=== PATIENT | female | born 1995 | race African-American/Black ===

== ENCOUNTER 2023-11-03 17:08 | Emergency (ER) | payer MEDICAID, SELFPAY ==
[2023-11-03 17:06] VITALS: BP 111/91; PULSE 90; RESP 16; TEMP 36.9; O2SAT 100
[2023-11-03 17:33] LABS: Basophils Percent Auto 0.2 % (0.2-1.2); Eosinophils Absolute Auto 0.1 K/mm3 (0-0.3); Eosinophils Percent Auto 1.5 % (0-4.4); Hematocrit 38.4 % (37.0-47.0); Hemoglobin 12.7 g/dL (12.0-15.0); Immature Granulocyte Absolute 0.03 K/mm3 (0.00-0.031); Immature Granulocyte Percent A 0.3 % (0-0.5); Lymphocytes Absolute Auto 1.89 K/mm3 (0.9-3.2); Lymphocytes Percent Auto 20.7 % (18.3-44.2); Mean Corpuscular HGB Conc 33.1 g/dl (32-36); Mean Corpuscular Hemoglobin 29.6 pg (26-34); Mean Corpuscular Volume 89.5 fl (80-100); Mean Platelet Volume 10.7 fl (7.4-10.4); Monocytes Absolute Auto 0.6 K/mm3 (0.1-0.6); Monocytes Percent Auto 6.3 % (2.6-8.5); Neutrophils Absolute Auto 6.5 K/mm3 (1.3-6.7); Platelet Count Result 217 k/mm3 (150-375); Red Blood Count 4.29 M/mm3 (4.2-5.4); Red Cell Distribution Width 12.3 % (11.5-14.5); White Blood Count 9.1 K/mm3 (4.5-10.0)
[2023-11-03 17:43] LABS: Alanine Aminotransferase 16 U/L (6-35); Albumin Level 4.3 g/dL (3.5-5.1); Alkaline Phosphatase 71 U/L (38-126); Anion Gap 12 mmol/L (4-12); Aspartate Amino Transferase 24 U/L (14-36); Bilirubin,Total 0.8 mg/dL (0.2-1.3); Blood Urea Nitrogen 6 mg/dL (7-17); Calcium 8.9 mg/dL (8.4-10.2); Carbon Dioxide 21 mmol/L (22-30); Chloride 103 mmol/L (98-107); Estimated CRCL calculation 90 ml/min; Estimated Glomerular Filt Rate > 60; Glucose 104 mg/dL (65-110); Lipase 31 U/L (23-300); Potassium 3.5 mmol/L (3.4-5.0); Sodium 136 mmol/L (137-145)
[2023-11-03 17:52] VITALS: BP 131/80; PULSE 92; RESP 14; O2SAT 98
--- NOTE | 2023-11-03 18:30 | ED.ABDPAIN ---
HPI - Abdominal Pain General Chief Complaint: Abdominal Pain Stated Complaint: Abd pain Time Seen by Provider: 11/03/23 17:45 History of Present Illness HPI narrative: Patient is a 28-year-old female who presents to the emergency department this evening complaining of abdominal cramping that started while she was finishing her workout at the gym. Patient states that she was doing this to her master's for 20 minutes and some abdominal workouts. Patient started to feel nauseous and initially thought it was due to the amount of water she was drinking while she was working out but then decided to go outside of the gym to get some fresh air and started to have some lower abdominal cramping. Patient states that by the time EMS arrived in she was administered some IV fluids she started to feel better and by the time she arrived to our emergency department the abdominal cramping have completely stopped. Patient believes that she over did it at the gym today and states that she has not work that in the past 3 weeks as she was taking a break and finally decided to get back to it today. She is currently denying any urinary symptoms and denies any abdominal pain at this time, is resting comfortably without any concerns or complaints. Related Data Allergies Allergy/AdvReac Type Severity Reaction Status Date / Time No Known Allergies Allergy Verified 11/03/23 17:25 Review of Systems Review of Systems: All systems are reviewed and are negative unless stated otherwise in the HPI. Exam Narrative: General: Alert, awake, afebrile, in no acute distress. HEENT: PERRL, no rhinorrhea, no post nasal drip, oropharynx clear. Cardiovascular: Regular rate and rhythm, no murmurs, rubs or gallops, no peripheral edema. Respiratory: Clear to auscultation bilaterally, no tachypnea, no wheezing, no rhonchi, no rubs, no respiratory distress. Abdomen: Soft, nontender, nondistended, no rebound, no guarding, no peritoneal signs. Musculoskeletal: No joint swelling or deformity, normal muscle tone. Skin: No rashes or petechia, no signs of infection. Neurological: Alert and oriented to person, place, and time. Follows all commands. No focal deficits, speech is clear and fluent. Course Vital Signs Vital signs: Vital Signs Temperature 98.5 F 11/03/23 17:06 Pulse Rate 90 11/03/23 17:06 Respiratory Rate 16 11/03/23 17:06 Blood Pressure 111/91 H 11/03/23 17:06 Pulse Oximetry 100 11/03/23 17:06 Oxygen Delivery Room Air 11/03/23 17:06 Temperature 98.5 F 11/03/23 17:06 Pulse Rate 92 11/03/23 17:52 Respiratory Rate 14 11/03/23 17:52 Blood Pressure 131/80 11/03/23 17:52 Pulse Oximetry 98 11/03/23 17:52 Oxygen Delivery Room Air 11/03/23 17:06 MDM - Abdominal Pain MDM Narrative Medical decision making narrative: The patient was evaluated by myself in the emergency department. History is obtained from patient who is an independent historian and physical exam was performed. External medical records were reviewed at this time. IV was established and pertinent tests were ordered. Laboratory results obtained revealing no acute process. Shared medical decision-making with patient regarding obtaining imaging was discussed at this time and patient is agreeable that no CT is indicated some as patient is completely asymptomatic with a soft nontender abdomen. Differential diagnosis considerations include musculoskeletal spasms, dehydration and electrolyte derangements. Comorbidities impacting this visit include none. I have evaluated and discussed social determinants of health with the patient that could potentially impact subsequent diagnosis and treatment plans. On repeat assessment of the patient, reevaluation revealed that the patient is doing well and is in no acute distress. Patient symptoms have improved since she arrived to our emergency department. Repeat vital signs were all reviewed and noted to be stable.
[2023-11-03 18:46] VITALS: BP 126/78; PULSE 87; RESP 14; O2SAT 99
== END 2023-11-03 18:47 | disposition home or self-care (01) ==
PROVIDERS: Emergency Medicine; Emergency Provider Emergency Medicine; PCP Family Medicine
DX: R10.9 Unspecified abdominal pain (principal)
CPT/HCPCS: 36415; 80053; 83690; 85025; 99283

== ENCOUNTER 2024-08-03 19:10 | Emergency (ER) | payer OTHER, SELFPAY ==
--- OUTSIDE RECORDS SUMMARY | 2024-08-03 19:12 | XMS_ITS | Data Portability ---
Author Organization [facility] Address [address] [facility] [place] [address] Assessment Encounter Date Assessment Date Assessment LastModified by Organization Details LastModified Time 03/28/2019 03/28/2019 Duplicate chart for this day. [email or web address] Not available 03/28/2019 16:41:03 Plan of Treatment Reminders Order Date Submit Date Provider Last Modified By Organization Details Last Modified Time Details Appointments None recorded. Lab bacterial vaginosis panel, vaginal 2019 020 TALISHA [facility] (Centralized Electronic Ordering - All Locations), Patient Can Go To The Location Of Their Choice, [id number] 0 08:40:01 culture, vaginal/r ectal, streptoco ccus group B 2019 020 TALISHA [facility] (Centralized Electronic Ordering - All Locations), Patient Can Go To The Location Of Their Choice, [id number] 0 08:40:01 HIV 1+2 AB + HIV 1 p24 Ag, qualitati ve immunoass ay, serum 2018 019 TALISHA [facility], [address], [place], [address], 9 09:10:08 RPR (rapid plasma reagin), serum 2018 019 TALISHA [facility], [address], [place], [address], 9 09:10:08 hepatitis panel (A+B+C), acute, serum 2018 019 [facility], [address], [place], [address], 9 09:10:07 bacterial vaginosis + vaginitis panel, vaginal 2018 019 [facility], [address] [address], [place], [address], 9 06:06:40 unlisted lab - igp, rfx aptima HPV ascu 2018 019 [facility], [address] [facility] [address], [place], [address], 9 15:08:47 CT + NG + TV, DNA, urine/swa b 2017 018 [facility], 2022 Angelia Jeffers, [address], [address], 8 07:13:47 test, urine 2017 018 tha In-Office Order, Internal Use Only DO Not Attach Compendium DO Not Attach Compendium, Do Not Delete/merge, [id number] 8 16:06:50 urinalysi s, dipstick 2017 Claudio almazan In-Office Order, Internal Use Only DO Not Attach Compendium DO Not Attach Compendium, Do Not Delete/merge, [id number] 8 16:06:50 Referral None recorded. Procedures None recorded. Surgeries None recorded. Imaging None recorded. Medication Orders Xulane 150 mcg-35 mcg/24 hr transderm al patch 2017 018 [id number], [address] [place], [place], [id number], 9 11:32:14 multivita min tablet 2017 018 [facility] #[id number], [address] [place], [place], [id number], 9 11:32:06 calcium 600 mg (as carbonate )-vitamin D3 20 mcg (800 unit) tablet 2017 018 [id number] [place], [place], [id number], 9 11:32:01 Patient TargetsNo targets recorded. Patient InstructionsNo instructions recorded. Reason for Referral None Reported. Results Created Date Observation Date Name Description Value Unit Range Abnormal Flag Note LastModifiedBy Organization Detail LastModifiedTime 01/25/20 18 01/24/2018 urina lysis , dipst ick Leukocytes Trace Not Available In-Offi ce Order Internal Use Only DO Not Attach Compendium DO Not Attach Compendium, Do Not Delete/merge, [id number] 01/24/2018 15:18:47 01/25/20 18 01/24/2018 urina lysis , dipst ick Nitrite negati ve Not Available In-Office Order Internal Use Only DO Not Attach Compendium DO Not Attach Compendium, Do Not Delete/merge, [id number] 01/24/2018 15:18:47 01/25/20 18 01/24/2018 urina lysis , dipst ick Urobilinogen .2 Not Available In-Of fice Order Internal Use Only DO Not Attach Compendium DO Not Attach Compendium, Do Not Delete/merge, [id number] 01/24/2018 15:18:47 01/25/2001/24/2018 urina lysis , dipst ick Protein Negati ve Not Available In-Office Order Internal Use Only DO Not Attach Compendium DO Not Attach Compendium, Do Not Delete/merge, [id number] 01/24/2018 15:18:47 01/25/20 18 01/24/2018 urina lysis , dipst ick pH 6.5 Not Available In-Office Order Internal Use Only DO Not Attach Compendium DO Not Attach Compendium, Do Not Delete/merge, [id number] 01/24/2018 15:18:47 01/25/20 18 01/24/2018 urina lysis , dipst ick Blood Negati ve Not Available In-Office Order Internal Use Only DO Not Attach Compendium DO Not Attach Compendium, Do Not Delete/merge, [id number] 01/24/2018 15:18:47 01/25/20 18 01/24/2018 urina lysis , dipst ick Specific [place] 1.015 Not Available In-Off ice Order Internal Use Only DO Not Attach Compendium DO Not Attach Compendium, Do Not Delete/merge, [id number] 01/24/2018 15:18:47 01/25/20 18 01/24/2018 urina lysis , dipst ick Ketone Negati ve Not Available In-Office Order Internal Use Only DO Not Attach Compendium DO Not Attach Compendium, Do Not Delete/merge, [id number] 01/24/2018 15:18:47 01/25/20 18 01/24/2018 urina lysis , dipst ick Bilirubin Negati ve Not Available In-Office Order Internal Use Only DO Not Attach Compendium DO Not Attach Compendium, Do Not Delete/merge, [id number] 01/24/2018 15:18:47 01/25/20 18 01/24/2018 urina lysis , dipst ick Glucose Negati ve Not Available In-Office Order Internal Use Only DO Not Attach Compendium DO Not Attach Compendium, Do Not Delete/merge, [id number] 01/24/2018 15:18:47 01/25/20 18 01/24/2018 pregn sarah test, urine HCG negati ve Not Available In-Office Order Internal Use Only DO Not Attach Compendium DO Not Attach Compendium, Do Not Delete/merge, [id number] 01/24/2018 15:14:17 01/25/20 18 01/26/2018 CT + NG + TV, DNA, urine /swab chlamydia by ADELITA Negati ve negati ve Not Available [facility] ([facility]) [address], [place], [address], 01/26/2018 07:13:47 01/25/20 18 01/26/2018 CT + NG + TV, DNA, urine /swab gonococcus by ADELITA Negati ve negati ve Not Available [facility] ([facility]) [address] [facility], [place], [address], 01/26/2018 07:13:47 01/25/20 18 01/26/2018 CT + NG + TV, DNA, urine /swab trich vag by ADELITA Negati ve negati ve Not Available [facility] ([facility]) [address] [facility] [facility], [place], [address], 01/26/2018 07:13:47 03/28/20 19 03/29/2019 hepat itis panel (A+B+ C), acute , serum hep A Ab, IgM Negati ve negati ve Not Available [facility] ([facility]) [address] [facility], [place], [address], 03/29/2019 09:10:07 03/28/20 19 03/29/2019 hepat itis panel (A+B+ C), acute , serum HBsAg screen Negati ve negati ve Not Available [facility] ([facility]) [address] [facility], [place], [address], 03/29/2019 09:10:07 03/28/2003/29/2019 hepat itis panel (A+B+ C), acute , serum hep B core Ab, IgM Negati ve negati ve Not Available [facility] ([facility]) [address] [facility], [place], [address], 03/29/2019 09:10:07 03/28/2003/29/2019 hepat itis panel (A+B+ C), acute , serum hep C virus Ab 0.2 s/co_ ratio 0.0-0. 9 Negat cora: < 0.8 Indet ermin ate: 0.8 - 0.9 Posit cora: > 0.9 The CDC recom mends that a posit cora HCV antib leonel resul t be follo wed up with a HCV Nucle ic Acid Ampli ficat ion test (5507 13). Not Available [facility] ([facility]) [address] [facility], [place], [address], 03/29/2019 09:10:07 03/28/20 19 03/29/2019 RPR (rapi d plasm a reagi n), serum RPR Non Reacti ve non reacti ve Not Available [facility] ([facility]) [address] [place], [address], 03/29/2019 09:10:08 03/28/20 19 03/29/2019 HIV 1+2 AB + HIV 1 p24 Ag, quali tativ e immun oassa y, serum HIV screen 4TH generation wrfx Non Reacti ve non reacti ve Not Available [facility] ([facility]) [address] [place], [address], 03/29/2019 09:10:08 03/28/20 19 03/31/2019 bacte rial vagin osis + vagin itis panel , vagin al atopobium vaginae Modera te - 1 score Not Available [facility] ([facility]) [address] [place], [address], 04/01/2019 06:06:40 03/28/20 19 03/31/2019 bacte rial vagin osis + vagin itis panel , vagin al bvab 2 High - 2 score abnormal Not Available [facility] ([facility]) [address] [place], [address], 04/01/2019 06:06:40 03/28/20 19 03/31/2019 bacte rial vagin osis + vagin itis panel , vagin al megasphaera 1 High - 2 score abnormal Calcu late total score by luzma g the 3 indiv idual bacte rial vagin osis (BV) marke r score s toget her. Total score is inter prete d as follo ws: Total score 0-1: Indic ates the absen ce of BV. Total score 2: Indet ermin ate for BV. Addit ional clini raven data shoul d be evalu ated to estab jocy a diagn osis. Total score 3-6: Indic ates the prese nce of BV. This test was devel oped and its perfo rmanc e laura cteri stics deter mined by [employer]. It has not been clear ed or appro pamela by the Food and Drug Admin istra tion. The FDA has deter mined that such clear ance or appro regan is not neces emmett. Not Available [facility] ([facility]) [address] [place], [address], 04/01/2019 06:06:40 03/28/20 19 03/31/2019 bacte rial vagin osis + vagin itis panel , vagin al evelio albicans, ADELITA Negati ve negati ve Not Available [facility] ([facility]) [address] [place], [address], 04/01/2019 06:06:40 03/28/2003/31/2019 bacte rial vagin osis + vagin itis panel , vagin al evelio glabrata, ADELITA Negati ve negati ve This test was devel oped and its perfo rmanc e laura cteri stics deter mined by [employer]. It has not been clear ed or appro pamela by the Food and Drug Admin istra tion. The FDA has deter mined that such clear ance or appro regan is not neces emmett. Not Available [facility] ([facility]) [address] [facility] [facility], [place], [address], 04/01/2019 06:06:40 03/28/2003/31/2019 bacte rial vagin osis + vagin itis panel , vagin al trich vag by ADELITA Negati ve negati ve Not Available [facility] ([facility]) [address] [place], [address], 04/01/2019 06:06:40 03/28/20 19 03/31/2019 bacte rial vagin osis + vagin itis panel , vagin al chlamydia trachomatis, ADELITA Negati ve negati ve Not Available [facility] ([facility]) [address] [place], [address], 04/01/2019 06:06:40 03/28/20 19 03/31/2019 bacte rial vagin osis + vagin itis panel , vagin al neisseria gonorrhoeae, ADELITA Negati ve negati ve Not Available [facility] ([facility]) [address] [place], [address], 04/01/2019 06:06:40 03/28/20 19 04/02/2019 pap, IG + refle x HR HPV diagnosis: Darnell sena abnormal EPITH ELIAL CELL ABNOR MALIT Y. LOW GRADE SQUAM OUS INTRA EPITH ELIAL LESIO N (LSIL ). Not Available [facility] ([facility]) [address] [facility], [place], [address], 04/02/2019 15:08:47 03/28/20 19 04/02/2019 pap, IG + refle x HR HPV specimen adequacy: Darnell t Satis facto ry for evalu ation . Endoc ervic al and/o r squam ous metap lasti c cells (endo cervi raven compo nent) are prese nt. Not Available [facility] ([facility]) [address] [facility], [place], [address], 04/02/2019 15:08:47 03/28/20 19 04/02/2019 pap, IG + refle x HR HPV clinician provided ICD10: Darnell sena Z20.2 Z01.4 19 Not Available [facility] ([facility]) [address] [place], [address], 04/02/2019 15:08:47 03/28/20 19 04/02/2019 pap, IG + refle x HR HPV performed by: Darnell kessler Cytot eagle sena (ASCP ) Not Available [facility] ([facility]) [address] [place], [address], 04/02/2019 15:08:47 03/28/20 19 04/02/2019 pap, IG + refle x HR HPV electronical ly signed by: Darnell guillen MD, Patho logis t Not Available [facility] ([facility]) [address] [place], [address], 04/02/2019 15:08:47 03/28/20 19 04/02/2019 pap, IG + refle x HR HPV . . Not Available [facility] ([facility]) [address] [facility], [place], [address], 04/02/2019 15:08:47 03/28/20 19 04/02/2019 pap, IG + refle x HR HPV pathologist provided ICD10: Darnell sena R87.6 12 Not Available [facility] ([facility]) [address] [facility], [place], [address], 04/02/2019 15:08:47 03/28/20 19 04/02/2019 pap, IG + refle x HR HPV note: Darnell sena The Pap smear is a scree melany test desig johnny to aid in the detec tion of saul ligna nt and malig nant condi tions of the uteri ne cervi x. It is not a diagn ostic proce dure and shoul d not be used as the sole means of detec ting cervi raven cance r. Both false -posi tive and false -nega tive repor ts do occur . Not Available [facility] ([facility]) [address] [facility], [place], [address], 04/02/2019 15:08:47 03/28/20 19 04/02/2019 pap, IG + refle x HR HPV test methodology: Darnell sena This liqui d based ThinP rep(R ) pap test was scree johnny with the use of an image guide d systtommy m. Not Available [facility] ([facility]) [address] [place], [address], 04/02/2019 15:08:47 03/28/20 19 04/02/2019 pap, IG + refle x HR HPV . Commen t The HPV DNA refle x crite jesse were not met with this speci men resul t there fore, no HPV testi ng was perfo rmed. Not Available [facility] ([facility]) [address] [facility], [place], [address], 04/02/2019 15:08:47 Result Notes None recorded. 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 Procedures Surgical History Date Name Laterality Status Provider Name and Address Organization Details Recorded Time 8 Control Implant Removal completed Mateo WEAVER - [facility] 01/24/2018 18:31:40 5 Control Implant Insertion completed Mateo Pattie [place] - [facility] 01/01/2015 17:46:17 Imaging Results None recorded. Procedure Notes None recorded. Medical Equipment Implant [employer] Issuing Agency Serial Number Lot Number Status Provider Name and Address Organization Details Recorded Time nexplanon FDA Y RAJAN [place] - [facility] 01/24/2018 13:57:41 Allergies No known drug allergies Medications Name Sig Start Date Stop Date Status Note LastModified by Organization Details LastModified Time ibuprofen tab 800mgibupro fen active Not Available Not Available Not Available ferrous sulf tab 325mgferrou s sulfate 01/24 completed Not Available Not Available Not Available prenat plus tab 27-1mgprena brandon plus 01/24 completed Not Available Not Available Not Available oxycod/apap tab 5-325mgoxyc odone/aceta minophen active Not Available Not Available Not Available multivitami n tablet Take 1 tablet every day by oral route. 03/28 completed Not Available Not Available Not Available ibuprofen 800 mg tablet TAKE 1 TABLET BY MOUTH THREE TIMES DAILY NEEDED FOR CRAMPS 01/24 completed Not Available Not Available Not Available metronidazo le 500 mg tablet Take 1 tablet every 12 hours by oral route as directed for 7 days. 2018 active Not Available Not Available Not Avai lable Vitamin tablet Take 1 tablet every day by oral route as directed. 01/24 completed Not Available Not Available Not Available oxycodone-a cetaminophe n 5 mg-325 mg tablet Take 1 tablet every 6 hours by oral route. 01/24 completed Not Available Not Available Not Available ferrous sulfate 325 mg (65 mg iron) tablet Take 1 tablet twice a day by oral route. 01/24 completed Not Available Not Available Not Available Trinatal Rx 1 60 mg iron-1 mg tablet 01/24 completed Not Available Not Available Not Available Plus (calcium carbonate) 27 mg iron-1 mg tablet 01/24 completed Not Available Not Available Not Available Nexplanon 68 mg subdermal implant Inject 1 implant by subcutane ous route. 03/28 completed Not Available Not Available Not Available calcium 600 mg (as carbonate)- vitamin D3 20 mcg (800 unit) tablet Take 1 tablet twice a day by oral route for 30 days. 03/28 completed Not Available Not Available Not Available Xulane 150 mcg-35 mcg/24 hr transdermal patch Appy 1 patch to skin weekly 03/28 completed Not Available Not Available Not Available Vitals Date Recorded Body weight Systolic blood pressure Diastolic blood pressure Provider Name and Address Organization Details Last Updated DateTime 01/24/2018 54215 g 98 mm[Hg] 62 mm[Hg] Jennifer Forte MA [facility] 01/24/2018 15:10:31 Date Recorded Body height Provider Name an d Address Organization Details Last Updated DateTime 04/19/2018 167.64 cm Angelina Mckeon [place] - [facility] 04/19 12:06:53 Date Recorded Body height Body mass index (BMI) Body weight Heart rate Body temperature Oxygen saturation Oxygen saturation in Arterial blood by Pulse oximetry Systolic blood pressure Diastolic blood pressure Provider Name and Address Organization Details Last Updated DateTime 9 167.64 cm 23.3 kg/m2 77657.3 29638 g 88 /min 98.3 [degF] 99 % 99 % 110 mm[Hg] 76 mm[Hg] Angelina Oliveira [place] - [facility] 9 11:30:08 Social History Question Answer Notes LastModified by Organizat ion Details LastModified Time Tobacco Smoking Status Never Smoker Margaret Johns [place] null, [place] - [facility] 05/13/2014 12:02:30 Do You Have An Advance Directive? No Information not available 05/30/2014 What Is Your Level Of Alcohol Consumption? None [email or web address] Information not available 05/30/2014 If You Are , What Was Your Level Of Alcohol Consumption Prior To ? None [email or web address] Information not available 05/30/2014 Is Anesthesia Consult Planned? Yes [email or web address] Information not available 05/30/2014 Animal Exposure? No Information not available 12/23/2014 Do You Wear A Helmet When Biking? No [email or web address] Information not available 01/24/2018 Plan Yes [email or web address] Information not available 05/30/2014 Are You Blind Or Do You Have Difficulty Seeing? No [email or web address] Information not available 01/24/2018 Is Blood Transfusion Acceptable In An Emergency? Yes [email or web address] Information not available 05/30/2014 What Is Your Level Of Caffeine Consumption? Occasional Soda Occasionally [email or web address] Information not available 05/30/2014 Live With Cats/exposure To Cat Litter No [email or web address] Information not available 05/30/2014 How Much Tobacco Do You Chew? None [email or web address] Information not available 05/30/2014 Are You Currently Employed? No [email or web address] Information not available 05/30/2014 Are You Deaf Or Do You Have Serious Difficulty Hearing? No [email or web address] Information not available 01/24/2018 What Type Of Diet Are You Following? 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 No [email or web address] Information not available 05/30/2014 Frequent Air Travel No [email or web address] Information not available 05/30/2014 Are There Any Guns Present In Your Home? No [email or web address] Information not available 01/24/2018 What Is Your Home Situation? Mother Information not available 12/23/2014 Illicit Drugs Pre- None [email or web address] Information not available 05/30/2014 Live Alone Or With Others? With Others [email or web address] Information not available 05/30/2014 Car Seat Type Or Seat Belt? Seat Belt Information not available 12/23/2014 Parent Involvement? Both Parents Involved Information not available 12/23/2014 Riding In Car Front Seat? Yes Information not available 12/23/2014 Marital Status Single [email or web address] Informati on not available 05/30/2014 What Was The Date Of Your Most Recent Tobacco Screening? 04/19/2018 Information not available 11/29/2018 How Many Children Do You Have? 1 [email or web address] Information not available 01/24/2018 What Is Your Parents' Marital Status? Unmarried Information not available 12/23/2014 What Is The Name Of Your School? [employer] Information not available 12/23/2014 Seat Belts Used Routinely Yes [email or web address] Information not available 05/30/2014 Are You Sexually Active? Yes Information not available 05/30/2014 Do You Have Smoke And Carbon Monoxide Detectors In Your Home? Yes [email or web address] Information not available 05/30/2014 Are You Passively Exposed To Smoke? No [email or web address] Information not available 05/30/2014 How Much Tobacco Do You Smoke? No [email or web address] Information not available 05/30/2014 Smoking Pre- No [email or web address] Information not available 05/30/2014 What Types Of Sporting Activities Do You Participate In? Volley Ball Information not available 12/23/2014 General Stress Level Medium [email or web address] Information not available 05/30/2014 Do You Use Sunscreen Routinely? Yes [email or web address] Information not available 05/30/2014 Supplements No [email or web address] Information not available 05/30/2014 How Many Years Have You Smoked Tobacco? 0 [email or web address] Information not available 01/24/2018 Year In School 12 Informatio n not available 12/23/2014 Sex: Unknown Functional Status Question Answer Note LastModified by Organization D etails LastModified Time Do you have difficulty walking or climbing stairs? No [email or web address] Information not available 01/24/2018 Do you have difficulty doing errands alone? No Information not available 01/24/2018 Do you have difficulty dressing or bathing? No [email or web address] Information not available 01/24/2018 What is your exercise level? None [email or web address] Information not available 05/30/2014 Mental Status Question Answer Note LastModified by Organization D etails LastModified Time Do you have difficulty concentrating, remembering or making decisions? No [email or web address] Information no t available 01/24/2018 Family History Relationship Description Onset Age of this Age Resolved Age Notes LastModified by Organization Details LastModified Time Paternal Grandmother Malignant tumor of lung [email or web address] Not available 07/12 13:18:47 Paternal Grandfather Malignant neoplasm of bone [email or web address] Not available 07/12 13:18:47 Medical History Condition Response Coronary Artery Disease N Blood Diseases N Kidney Cyst N Hyperthyroidism N MRSA N Blood Transfusion N Blood disorders N Emphysema N Depression N COPD N Blood Clots N Pneumonia N Peripheral Arterial Disease N Premature N Edema N TIA N Headaches/Migraines N Anxiety Disorder N Obesity N Polyps N Infertility N Acid Reflux (GERD) N Hematuria N Stroke N Neck Injury N Polio N Hospital Admission other than N Neurologic Disorder N Other Sleep Disorders N Rheumatoid Arthritis N Fibromyalgia N Abdominal Aortic Aneurysm Repair N Kidney Disease N Heart Conditions N Heart Disease/Heart Problems N Hospitalizations N Brain Tumors N Acne N Eating Disorder N Skin Problems N Constipation N Meningitis N Tuberculosis N Cerebral Palsy N Myocardial Infarction N Asthma N Substance Abuse N Peripheral Vascular Disease N Vertigo N Sleep Disorder N Cirrhosis N Pulmonary Embolism N Chicken Pox N Flomax Use Past or Present N Hematologic Disease N Anxiety/Depression N Thyroid Disease N Colon Cancer N Glaucoma N Lung Disease N Developmental or Behavioral Disorders N Bipolar N Pacemaker N Diverticulitis/Diverticulosis N Anesthesia Complications N Orthopedic Problems N Orthotics N Head Injury/Concussion N Congenital Anomalies N [place] Bite N Chronic Kidney Disease N Endometriosis N Liver Disease N Dialysis N Schizophrenia N Speech Delay N Chronic Obstructive Pulmonary Disease N Parkinson's Disease N Thyroid Problems N GI Problems N Developmental Delay N Anemia N Immune System Disorder N Multiple Sclerosis N Colon Polyps N Heart Attack (DE) N Diabetes N Cardiomyopathy N Blood Transfusions N Heart Problems/Murmur N Eye Trauma N Congestive Heart Failure (CHF) N Valvular Heart Disease N Hyperlipidemia N Double Vision N Abuse/Domestic Violence N Hepatitis B N Lupus N Epilepsy/Seizures N Reflux/GERD N Aneurysm N Bronchitis N Heart Disease N Hypertension N Pre-Eclampsia N Heart Failure N Other N Gout N High Blood Pressure N Atrial Fibrillation N Kidney Stones N Head Trauma/Injury N Congenital Heart Disease N Spine Problems N Gastrointestinal Disease N Lung Mass N Sinusitis N Obstructive Sleep Apnea N Muscle, Joint, or Bone Problems N Autoimmune disease N Vision or Eye Problems Y Arthritis N Blood Clot N Cancer N Seasonal allergies N Leg or Foot Ulcers N Raynaud's Disease N Aortic Aneurysm N Arrhythmia N Headaches N Heart Problems N Ambloypia N Ear or Hearing Problems N Hyperparathyroidism N Migraines N Artificial Joints N Kidney or Bladder Problems N NSAID Use N Encephalitis N PTSD N Ulcers N Prostate Hypertrophy N Bleeding Disorder N AIDS/HIV N Urinary Tract Infection N Back Problems N Allergies N Atrial Flutter N GERD/Reflux N Hepatitis N Autism Spectrum Disorder (ASD) N Breast Cancer N Hernia N Hypothyroidism N Breast Problem N Genitourinary Disease N Deep Vein Thrombosis N Varicose Veins N Cystic Fibrosis N Hearing Loss N Developmental Problems N Carotid Disease N Vitamin D Deficiency N ADHD N Bladder or Kidney Problems N High Cholesterol N [place] N Valvular Abnormalities N Psychiatric/Mental Health Condition N Organ Transplant N Foot Deformity N Allergies/Hayfever N Dyslipidemia N Hyponatremia N Diabetic Eye Disease N Osteoporosis/Osteopenia N Back Pain N Proteinuria N Mental Illness N Neurological Problems N Ovarian Cancer N Bedwetting N Seizures/Epilepsy N Kidney Failure N Ocular trauma N Dementia N Diverticulitis N Sleep Apnea N Mental Problems N Warfarin Management N Osteoporosis N Gynecological History Statement/Question Response Abnormal Pap N Flow Light Date of LMP 03/21/2019 On BCP's at Conception? N STIs/STDs N HPV Vaccine N Duration of Flow (days) 5 Age at Menarche 14 Current Control Method None Frequency of Cycle (Q days) 30 Sexually Active? Y Menses Monthly Y Sexual Problems? N LMP Approximate Desired Control Method None Obstetrics History GPAL:G 1 P 1 0 0 1 Type Value Multiple Births 0 Full Term 1 Induced 0 Spontaneous 0 Premature 0 Living 1 Ectopics 0 Total 1 Immunizations Vaccine Type Date Status Note Provider Nam e and Address Organization Details Recorded Time Influenza, split virus, quadrivalent, preservative 6 completed Not Available [facility] 05/25/2019 02:32:12 varicella 5 completed Not Available [facility] 05/25/2019 02:29:48 meningococcal MCV4P 5 completed Not Available [facility] 05/25/2019 02:30:16 Influenza, split virus, trivalent, PF 5 completed Not Available [facility] 05/25/2019 02:43:44 Past Encounters Encounter ID Performer Location Encounter Start Date Encounter Closed Date Diagnosis/Indication Diagnosis SNOMED-CT Code Diagnosis ICD10 Code Diagnosis Note [id number] SARITA Bray (PROFESSOR OF COMMUNICATION AND WRITING) [address] [place] [address] [id number] 0 05/13/2014 11:02:10 05/13/2014 13:27:58 Normal [id number] Mateo James (PROFESSOR OF COMMUNICATION AND WRITING) [address] [place] [address] [id number] 0 05/30/2014 15:48:31 05/30/2014 17:25:34 [id number] SARITA Bray (PROFESSOR OF COMMUNICATION AND WRITING) [address] [place] [address] [id number] 0 06/11/2014 16:05:03 06/11/2014 17:50:16 Normal [id number] Placenta previa [id number] RAJAN Louise (PROFESSOR OF COMMUNICATION AND WRITING) [address] [place] [address] [id number] 0 07/09/2014 15:39:41 07/09/2014 18:02:04 Normal [id number] SARITA Bray (PROFESSOR OF COMMUNICATION AND WRITING) [address] [place] [address] [id number] 0 08/06/2014 10:16:06 08/06/2014 11:42:50 Normal [id number] Jacob HC (PROFESSOR OF COMMUNICATION AND WRITING) [address] [place] [address] [id number] 0 08/19/2014 15:32:21 08/19/2014 16:51:08 Normal [id number] RAJAN Brewer HC (PROFESSOR OF COMMUNICATION AND WRITING) [address] [place] [address] [id number] 0 09/02/2014 15:31:45 09/02/2014 17:21:54 Normal [id number] Mateo James (PROFESSOR OF COMMUNICATION AND WRITING) [address] [place] [address] [id number] 0 09/16/2014 16:20:26 09/16/2014 17:46:55 Normal [id number] Teenage [id number] SARITA Bray (PROFESSOR OF COMMUNICATION AND WRITING) [address] [place] [address] [id number] 0 09/25/2014 14:39:52 09/25/2014 15:40:19 Teenage [id number] Mateo James HC (PROFESSOR OF COMMUNICATION AND WRITING) [address] [place] [address] [id number] 0 10/02/2014 14:32:53 10/02/2014 15:54:35 Teenage [id number] Jacob (PROFESSOR OF COMMUNICATION AND WRITING) [address] [place] [address] [id number] 0 10/09/2014 14:49:14 10/09/2014 17:04:24 Teenage [id number] Mateo James (PROFESSOR OF COMMUNICATION AND WRITING) [address] [place] [address] [id number] 0 10/28/2014 10:12:32 10/28/2014 11:41:53 state [id number] Transient hypertension of - delivered with complication [id number] pt had PIH in hospital, on MgSO4. Discharged home with BP check in office. [id number] RAJAN Pierson HC (PROFESSOR OF COMMUNICATION AND WRITING) [address] [place] [address] [id number] 0 11/20/2014 14:54:54 11/20/2014 17:31:00 care [id number] state [id number] Family ghassan nning surveillance [id number] Mateo James HC (PROFESSOR OF COMMUNICATION AND WRITING) [address] [place] [address] [id number] 0 12/04/2014 10:20:00 12/04/2014 10:58:37 state [id number] Family ghassan nning surveillance [id number] Transient hypertension of - delivered with complication [id number] pt had PIH in hospital, on MgSO4. Discharged home with BP check in office. [id number] Wai James HC (Peds) [address] [place] [address] [id number] 0 12/23/2014 11:54:15 12/23/2014 13:49:15 Well child [id number] Varicella and MCV4 given; transition to adult medicine. [id number] Mateo James HC (PROFESSOR OF COMMUNICATION AND WRITING) [address] [place] [address] [id number] 0 01/01/2015 16:08:08 01/01/2015 17:39:35 Insertion of subcutaneous contraceptive [id number] Mateo James HC (PROFESSOR OF COMMUNICATION AND WRITING) [address] [place] [address] [id number] 0 07/13/2015 11:59:06 07/13/2015 14:27:21 Subcutaneous contraceptive implant palpable [id number] Z30.49 Administra tion of influenza vaccine [id number] Z23 [id number] Mateo James HC (PROFESSOR OF COMMUNICATION AND WRITING) [address] [place] [address] [id number] 0 01/24/2018 14:43:17 01/25/2018 16:48:31 Removal of subcutaneous contraceptive done [id number] 49156 Z30.46 At [facility] ed risk of sexually transmitted infection [id number] Z20.2 Family ghassan nning surveillance [id number] Z30.09 [id number] RAJAN Chang HC (PROFESSOR OF COMMUNICATION AND WRITING) [address] [place] [address] [id number] 0 04/19/2018 11:32:48 04/24/2018 00:47:58 Routine care [id number] Z34.90 [id number] CHRIS TORRES HC (PROFESSOR OF COMMUNICATION AND WRITING) [address] [place] [address] [id number] 0 03/28/2019 10:30:58 03/28/2019 16:41:13 [id number] CHRIS TORRES (Adult Med) [address] [place] [address] [id number] 0 03/28/2019 10:58:19 03/29/2019 10:21:23 Gynecologic examination [id number] Z01.419 Here today for annual check-up No prior pap smears.No known exposure to STDs but feels more comfortabl e being checked since sexually active.Has no current complaints .On PE: normal- Nuswab and pap performed at visit, will call with results At [facility] risk of sexually transmitted infection [id number] Z20.2 Here today for STD testing. No known exposure to STDs but feels more comfortabl e being checked since sexually active.Has no current complaints .- Will get blood work [id number] Mateo LiceaPattierafael James (PROFESSOR OF COMMUNICATION AND WRITING) [address] [place] [address] [id number] 0 02/18/2020 14:20:31 02/19/2020 08:40:34 Vaginitis 44968013 N76.0 Exposure t o sexually transmissible disorder 036390447 Z20.2 Health Concerns Section Related Observation LastModified by Organization Detai ls LastModified Time None Recorded Concern Status LastModified by Organization Details LastModified Time None Recorded Advance Directives Directive N: Payers Encounter Date Sequence Insurance Name Policy Number Policy Alvarado Covered Member ID Alvarado Member ID Guarantor Name 04/19/2018 1 [place] [id number] Jenny Sullivan [id number] Peace Sullivan 03/28/2019 1 [place] [id number] Jenny Sullivan [id number] Peace Sullivan 03/28/2019 1 [place] [id number] Jenny Sullivan [id number] Peace Sullivan 03/28/2019 2 [place]) [id number] Jenny Sullivan [id number] Peace Sullivan 02/18/2020 1 [employer] HEALTH [place] - 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 Mateo LiceaPattie ric, [facility] 01/24/2018 18:33:00 03/28/2019 text/html Annual GYNReport ed bypatient.History:no gynecologic complaints; no change in interval history Menstrual cycle:Normal menses Urinary symptoms:No hematuria; No incontinence Vulva:No genital lesion Vagina:Normal vaginal discharge Current Contraception:Satisfie d with current contraception (not currently on BC); Condoms; Requests testing for sexually transmitted infections Sexual complaints:No sexual complaints; No pain during intercourse; Normal libido Psychological symptoms:No depression; No anxiety; No PMDD Preventive measures:Encourage self breast examination; Encourage regular exercise; Encourage no tobacco use 23 year old female presents today for annual check-up and STD testing.No prior pap smears. No known exposure to STDs but feels more comfortable being checked since sexually active. Has no current complaints. CHRIS TORRES Attn: Accounting,[address] [place], [address], [facility] 03/28/2019 16:32:40 02/18/2020 text/html Vaginal DischargeReported bypatient.Associated Symptoms:no vaginal itching; no vaginal burning; no swelling/redness; no fever/chills; no diarrhea; no abdominal pain; no pelvic pain; no vaginal pain; no pain during urination; no pain during intercourse; no vaginal lump; no genital lesion; no sexually transmitted disease; no fever 24 yo F presents via phone visit for intermittent vaginal discharge. Pt is on Xulane for BC. LMP: Pt denies pelvic pain, abnormal discharge, vaginal symptoms, n/v/f. Mateo LiceaPattie ric, [facility] 02/19/2020 08:40:32 OBGyn Episode Ob Episode Information Episode Created Date Number of Fetuses Patient Bloodtype Patient rh Status Prepregnancy Weight lbs Domestic Partner Domestic Partner Phone Father Name Telegraph Printer Mechanic Status 04/19/20 18 1 DELETED Fetus Data First Name Last Name Admitted to NICU Weight (g) Sex Living Outcome Pediatric Complications Fetus ID Race Codes Race Delivery Type [id number] [place] Calculation Initial [place] Date Initial Exam Date Initial Exam Provider Initial Ultrasound Date Last Menstrual Period Date Ultra Sound Weeks Gestation 04/19/2018 0 Eighteen To Twenty Week [place] Update Ultra Sound Date Fundal Height At Umbil Quickening Date Ultra Sound Latest Weeks Gestation Final [place] Confirmed By Final [place] Confirmed Date Final [place] Date Ultra Sound Latest Days Gestation 0 0 Menstrual History Last Menstrual Date Menses Monthly On Bcp Conception Prior Menses Frequency Hcg Plus Date Menarche Onset Age true Delivery Information Delivery Date Delivery Type Labor Anesthesia Weeks Gestation Incision Type Labor Labor Length Hrs Delivered By Post Complications Tubal Sterilization Discharge Date Comments Discharge Information Feeding Method Contraceptive Method Maternal HG B and HCT Levels Ob Episode Information Episode Created Date Number of Fetuses Patient Bloodtype Patient rh Status Prepregnancy Weight lbs Domestic Partner Domestic Partner Phone Father Name Telegraph Printer Mechanic Status 05/30/19 15 1 B Positive 126 Jrelisa Sullivan CLOSED Fetus Data First Name Last Name Admitted to NICU Weight (g) Sex Living Outcome Pediatric Complications Fetus ID Race Codes Race Delivery Type Jr Hassan false 3401.94 M Full Term none [id number] Afric an Ameri can Standard Vaginal Delivery [place] Calculation Initial [place] Date Initial Exam Date Initial Exam Provider Initial Ultrasound Date Last Menstrual Period Date Ultra Sound Weeks Gestation 10/20/2014 05/30/2014 05/27/2014 01/13/2014 19 Eighteen To Twenty Week [place] Update Ultra Sound Date Fundal Height At Umbil Quickening Date Ultra Sound Latest Weeks Gestation Final [place] Confirmed By Final [place] Confirmed Date Final [place] Date Ultra Sound Latest Days Gestation 0 tha 10/09/2014 015 0 Pre- Flowsheet Flowsheet Date 05/30/2014 Dennis Score Blood Edema Fundus Height Fundus Units Glucose Ketones Leukocytes Nitrite Labor Signs Protein Cervic Dilation Cervic Effacement Cervic Station Type Weight in lbs Pre/Post Dialysis Refused BP Diastolic BP Location Tested BP Systolic BP Type Fetus Heart Rate Present Fetus Movement Comments Flowsheet Date 06/11/2014 Dennis Score Blood Edema Fundus Height Fundus Units Glucose Ketones Leukocytes Nitrite Labor Signs Protein Cervic Dilation Cervic Effacement Cervic Station neg none 21 wks none negative none neg Type Weight in lbs Pre/Post Dialysis Refused 136.784107075769 BP Diastolic BP Location Tested BP Systolic BP Type 64 L arm 104 sitting Fetus Heart Rate Present A 145 Fetus Movement A Yes Comments placenta Flowsheet Date 07/09/2014 Dennis Score Blood Edema Fundus Height Fundus Units Glucose Ketones Leukocytes Nitrite Labor Signs Protein Cervic Dilation Cervic Effacement Cervic Station neg none 25 cm none negative none neg Type Weight in lbs Pre/Post Dialysis Refused 147.783129705135 BP Diastolic BP Location Tested BP Systolic BP Type 68 L arm 110 sitting Fetus Heart Rate Present A 158 Present Fetus Movement A Yes Comments having a boy Flowsheet Date 08/06/2014 Dennis Score Blood Edema Fundus Height Fundus Units Glucose Ketones Leukocytes Nitrite Labor Signs Protein Cervic Dilation Cervic Effacement Cervic Station neg none 24 cm none negative none neg Type Weight in lbs Pre/Post Dialysis Refused 154.853413167471 BP Diastolic BP Location Tested BP Systolic BP Type 72 R arm 122 sitting Fetus Heart Rate Present A Present Fetus Movement A Yes Comments Flowsheet Date 08/19/2014 Dennis Score Blood Edema Fundus Height Fundus Units Glucose Ketones Leukocytes Nitrite Labor Signs Protein Cervic Dilation Cervic Effacement Cervic Station neg none 32 cm none negative none neg Type Weight in lbs Pre/Post Dialysis Refused 161.391486802825 BP Diastolic BP Location Tested BP Systolic BP Type 78 R arm 120 sitting Fetus Heart Rate Present A 135 Present Fetus Movement A Yes Comments Flowsheet Date 09/02/2014 Dennis Score Blood Edema Fundus Height Fundus Units Glucose Ketones Leukocytes Nitrite Labor Signs Protein Cervic Dilation Cervic Effacement Cervic Station neg none 33 cm none negative none neg Type Weight in lbs Pre/Post Dialysis Refused 169.828684327576 BP Diastolic BP Location Tested BP Systolic BP Type 66 R arm 110 sitting Fetus Heart Rate Present A 142 Present Fetus Movement A Yes Comments Would like Nexplanon for pos tpartum control, would like to breastfeed Flowsheet Date 09/16/2014 Dennis Score Blood Edema Fundus Height Fundus Units Glucose Ketones Leukocytes Nitrite Labor Signs Protein Cervic Dilation Cervic Effacement Cervic Station neg none 35 cm none negative Pressure neg Type Weight in lbs Pre/Post Dialysis Refused 173.337850284816 BP Diastolic BP Location Tested BP Systolic BP Type 66 124 sitting Fetus Heart Rate Present A 155 Present Fetus Movement A Yes Comments Flowsheet Date 09/25/2014 Dennis Score Blood Edema Fundus Height Fundus Units Glucose Ketones Leukocytes Nitrite Labor Signs Protein Cervic Dilation Cervic Effacement Cervic Station neg 2+ 36 wks none negative none neg 0cm 50% - 3 Type Weight in lbs Pre/Post Dialysis Refused 176.146648891770 BP Diastolic BP Location Tested BP Systolic BP Type 74 110 sitting Fetus Heart Rate Present A 134 Present Fetus Movement A Yes Comments 36 labs/wtc/wlb/blood/legs u p Flowsheet Date 10/02/2014 Dennis Score Blood Edema Fundus Height Fundus Units Glucose Ketones Leukocytes Nitrite Labor Signs Protein Cervic Dilation Cervic Effacement Cervic Station neg none 37 wks none negative none neg 0cm 50% - 4 Type Weight in lbs Pre/Post Dialysis Refused 179.129629298792 BP Diastolic BP Location Tested BP Systolic BP Type 84 128 sitting Fetus Heart Rate Present A 155 Present Fetus Movement A Yes Comments labor instructions Flowsheet Date 10/09/2014 Dennis Score Blood Edema Fundus Height Fundus Units Glucose Ketones Leukocytes Nitrite Labor Signs Protein Cervic Dilation Cervic Effacement Cervic Station neg 2+ 39 wks none negative none neg 0cm 70% - 2 Type Weight in lbs Pre/Post Dialysis Refused 181.240143378553 BP Diastolic BP Location Tested BP Systolic BP Type 82 112 sitting Fetus Heart Rate Present A 151 Present Fetus Movement A Yes Comments [facility] 10/15/14 1800 cervidil Menstrual History Last Menstrual Date Menses Monthly On Bcp Conception Prior Menses Frequency Hcg Plus Date Menarche Onset Age 0901/13/2014 false false 32 12 Genetic Screening And Infection History Question Response Note Patient's Age Will Be 35 Years Or Older At Estim ated Date of Delivery false Thalassemia (South Sudanese, Solomon Islander, Mediterranean, Or Background): MCV < 80 false Neural Tube Defect (Meningomyelocele, Spina Bifi da, Or Anencephaly) false Congenital Heart Defect false Down Syndrome false Otilio-Sachs (eg, Quaker, Cajun, St Helenian-[place]) f alse Andrea Disease false Sickle Cell Disease Or Trait () false Hemophilia Or Other Blood Disorders false Muscular Dystrophy false Cystic Fibrosis false [place]'s Chorea false Mental Retardation/Autism false If Yes, Was Person Tested For Fragile X? false Other Inherited Genetic Or Chromosomal Disorder false Maternal Metabolic Disorder (eg, Type 1 Diabetes , PKU) false Patient Or Baby's Father Had A Child With Defects Not Listed Above false Recurrent Loss, Or A Stillbirth false Medications (including Suppl ements, Vitamins, Herbs, OTC Drugs), Illicit/Recreational Drugs, Alcohol false If Yes, Agent(s) And Strength/Dosage false Any Other Genetic History false Live With Someone With TB Or Exposed To TB false Patient Or Partner Has History Of Genital Herpes false Rash Or Viral Illness Since Last Menstrual Perio d false History Of STD, Gonorrhea, Chlamydia, HPV, Syphi lis false Other Infection History false Plans and Education First Trimester Discussed Date Discussion Item Discussion Note Discuss ed By 10/09/2014 Anticipated course of care [facility] 10/09/2014 Alcohol [facility] 10/09/2014 Intimate partner violence [facility] 10/09/2014 Environmental/work hazards [facility] 10/09/2014 [facility] Nutrition counseling ; special diet; dietary precautions (mercury, listeriosis) [facility] 10/09/2014 Childbirth classes/hospital facilities [facility] 10/09/2014 HIV and other routine tests [facility] 10/09/2014 Risk factors identif ied by history [facility] 10/09/2014 Weight gain counseling [facility] 10/09/2014 Exercise [facility] 10/09/2014 Teratogens [facility] 10/09/2014 Use of any medicatio ns (including supplements, vitamins, herbs, or OTC drugs) [facility] 10/09/2014 [facility] 10/[facility]2014 Sexual activity [facility] 10/09/2014 Tobacco/smoking cess ation counseling (ask, advise, assess, assist, and arrange) [facility] 10/09/2014 Illicit/recreational drugs [facility] 10/09/2014 Dental care [facility] 10/09/2014 [facility] 10/09/2014 Seat belt use [facility] 10/09/2014 Indications for ultrasonography [facility] 10/09/2014 Avoidance of saunas or hot tubs [facility] 10/09/2014 Toxoplasmosis precautions (cats/raw meat) [facility] Second Trimester Discussed Date Discussion Item Discussion Note Discuss ed By 10/09/2014 Selecting a care provider [facility] 10/09/[address] anning/tubal sterilization [facility] 10/09/2014 Depression screening (when indicated) [facility] 10/09/2014 [facility]normal lab values [facility] 10/09/2014 Signs and symptoms of labor [facility] 10/09/2014 Intimate partner violence [facility] 10/09/2014 Tobacco/smoking cess ation counseling (ask, advise, assess, assist, and arrange) [facility] Third Trimester Discussed Date Discussion Item Discussion Note Discuss ed By 10/09/2014 Intimate partner violence [facility] 10/09/2014 Anesthesia plans [facility] 10/09/2014 education (n ewborn screening, jaundice, SIDS/safe sleeping position, car seat) [facility] 10/09/2014 Circumcision [facility] 10/09/2014 Postterm counseling [facility] 10/09/2014 movement monitoring [facility] 10/09/2014 [facility] 10/09/2014 Labor signs [facility] 10/09/2014 depression [facility] 10/09/2014 Family medical leave or disability forms [facility] 10/09/2014 Tobacco/smoking cess ation counseling (ask, advise, assess, assist, and arrange) [facility] 10/09/2014 Trial of labor after (TOLAC) counseling [facility] 10/09/2014 Signs and symptoms of preeclampsia [facility] Delivery Information Delivery Date Delivery Type Labor Anesthesia Weeks Gestation Incision Type Labor Labor Length Hrs Delivered By Post Complications Tubal Sterilization Discharge Date Comments 5 [facility] 39.4 false 72 Mateo Blankenship MD Hemorrhage false 10/20/2014 Magnesium Sulfate 24 hrs Discharge Information Feeding Method Contraceptive Method Maternal HG B and HCT Levels Breast Nexplanon 01/01 Ob Episode Information Episode Created Date Number of Fetuses Patient Bloodtype Patient rh Status Prepregnancy Weight lbs Domestic Partner Domestic Partner Phone Father Name Telegraph Printer Mechanic Status 11/21/19 15 1 DELETED Fetus Data First Name Last Name Admitted to NICU Weight (g) Sex Living Outcome Pediatric Complications Fetus ID Race Codes Race Delivery Type Duane Norris JR false 3401.94 M true Full Term [id number] 4-5 Black or Afric an Ameri can Vaginal [place] Calculation Initial [place] Date Initial Exam Date Initial Exam Provider Initial Ultrasound Date Last Menstrual Period Date Ultra Sound Weeks Gestation 11/20/2014 0 Eighteen To Twenty Week [place] Update Ultra Sound Date Fundal Height At Umbil Quickening Date Ultra Sound Latest Weeks Gestation Final [place] Confirmed By Final [place] Confirmed Date Final [place] Date Ultra Sound Latest Days Gestation 0 0 Menstrual History Last Menstrual Date Menses Monthly On Bcp Conception Prior Menses Frequency Hcg Plus Date Menarche Onset Age Delivery Information Delivery Date Delivery Type Labor Anesthesia Weeks Gestation Incision Type Labor Labor Length Hrs Delivered By Post Complications Tubal Sterilization Discharge Date Comments [facility] Dr. pattie HILLIARD None false 10/20/[address] Tera murray Discharge Information Feeding Method Contraceptive Method Maternal HG B and HCT Levels Bottle Nexplanon
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
--- OUTSIDE RECORDS SUMMARY | 2024-08-03 19:12 | XMS_ITS | Clinical Summary ---
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 Gender Identity Not on file Sexual Orientation Not on file Plan of Treatment Health Maintenance Due Date Last Done Comments Hepatitis C Virus (HCV) Screening 1997 TdaP Immunization 1997 Human Papillomavirus (HPV) Immunization (1 - 3-dose series) 2012 Hepatitis B Immunization (1 of 3 - 19+ 3-dose series) 2016 Pap Smear 2018 Influenza Immunization (#1) 2024 03/0 11/2015, 05/16/2014 SARS-COV-2 Immunization (2023- season) 2024 Respiratory Syncytial Virus (RSV) Immunization (Adult) (1 - 1-dose 75+ series) 2072 Meningococcal Immunization (ACWY) Completed 12/23/2014 Pneumococcal Immunization Combined Aged Out No longer eligible b ased on patient's age to complete this topic Rotavirus Immunization Aged Out No lo nger eligible based on patient's age to complete this topic
[2024-08-03 19:14] VITALS: BP 130/76; PULSE 67; RESP 16; TEMP 36.1; O2SAT 100
--- NOTE | 2024-08-03 19:23 | PC.NURSE ---
c-collar placed in triage by this rn.
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
--- OUTSIDE RECORDS SUMMARY | 2024-08-03 20:33 | XMS_ITS | Clinical Summary ---
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
[2024-08-03] MEDS: IBUPROFEN 400 MG TABLET 800 MG PO (21:13)
[2024-08-03] MEDS: ACETAMINOPHEN 500 MG TABLET 1000 MG PO (21:13)
[2024-08-03] MEDS: methocarbamoL 750 MG TABLET 1500 MG PO (21:13)
== END 2024-08-03 21:22 | disposition home or self-care (01) ==
LOC: ANHED 20:32
PROVIDERS: Emergency Provider Emergency Medicine
DX: S29.012A Strain of muscle and tendon of back wall of thorax, initial encounter (principal); V49.40XA Driver injured in collision with unspecified motor vehicles in traffic accident, initial encounter
CPT/HCPCS: 99283; A9270; L0140